=== PATIENT | female | born 1965 | race Caucasian/White ===

== ENCOUNTER 2016-08-16 15:32 | Outpatient (CLI) | payer OTHER | END 2016-08-16 15:33 | disposition home or self-care (01) | DX: Z13.9 Encounter for screening, unspecified (principal); E55.9 Vitamin D deficiency, unspecified; Z13.29 Encounter for screening for other suspected endocrine disorder; K12.2 Cellulitis and abscess of mouth ==

== ENCOUNTER 2016-08-20 12:27 | Outpatient (CLI) | payer OTHER ==
[2016-08-20] MEDS ORDERED: IOPAMIDOL-300 100 ML VIAL IVP ONE (13:11)
== END 2016-08-20 12:28 | disposition home or self-care (01) ==
DX: K04.5 Chronic apical periodontitis (principal)
CPT/HCPCS: 70487; Q9967

== ENCOUNTER 2016-08-26 13:20 | Outpatient (CLI) | payer OTHER | END 2016-08-26 13:21 | disposition home or self-care (01) | DX: Z13.820 Encounter for screening for osteoporosis (principal) ==

== ENCOUNTER 2017-08-05 08:55 | Outpatient (CLI) | payer OTHER ==
[2017-08-05 11:39] LABS: HGB - HEMOGLOBIN 13.6 g/dL (12.0-16.0); MEAN CORPUSCULAR HEMOGLOBIN 30.8 pg (27.0-31.0); MEAN CORPUSCULAR HGB CONC 34.1 g/dL (32.0-36.0); MEAN CORPUSCULAR VOLUME 90.1 fL (81.0-99.0); MEAN PLATELET VOLUME 7.9 fL (7.9-10.8); RED BLOOD COUNT 4.41 10^6/uL (4.20-5.40); RED CELL DISTRIBUTION WIDTH 12.6 % (12.0-15.0); WHITE BLOOD COUNT 7.4 x10^3/uL (4.8-10.8)
== END 2017-08-05 08:56 | disposition home or self-care (01) ==
LOC: LAB.F 08:55
PROVIDERS: ATTEND Nurse Practitioner Family
DX: M79.675 Pain in left toe(s) (principal)
CPT/HCPCS: 36415; 84550

== ENCOUNTER 2017-09-17 17:15 | Outpatient (CLI) | payer OTHER ==
[2017-09-17 18:49] LABS: BILIRUBIN,URINE NEGATIVE (NEGATIVE); GLUCOSE, URINE (UA) NEGATIVE (NEGATIVE); KETONES,URINE (UA) NEGATIVE (NEGATIVE); OCCULT BLOOD,URINE LARGE (NEGATIVE); UROBILINOGEN,URINE 0.2 (NORMAL) E.U./dL (NORMAL)
[2017-09-17 18:53] LABS: CLARITY,URINE CLEAR (CLEAR)
[2017-09-17 18:59] LABS: BACTERIA,URINE Few /HPF (None Seen); MUCUS,URINE Few Strands; RBC,URINE TNTC /HPF (0-5); SQUAMOUS EPITHELIAL CELL,UR FEW Squamous (<= Few)
== END 2017-09-17 17:16 ==
LOC: LAB.R 17:15
PROVIDERS: ATTEND Physician Assistant Medical
DX: R31.0 Gross hematuria (principal); N39.0 Urinary tract infection, site not specified
CPT/HCPCS: 81001; 87086

== ENCOUNTER 2017-09-25 15:18 | Outpatient (CLI) | payer OTHER ==
[2017-09-26 15:48] LABS: BILIRUBIN,URINE NEGATIVE (NEGATIVE); GLUCOSE, URINE (UA) NEGATIVE (NEGATIVE); KETONES,URINE (UA) NEGATIVE (NEGATIVE); LEUKOCYTE ESTERASE, URINE NEGATIVE (NEGATIVE); NITRITE,URINE NEGATIVE (NEGATIVE); OCCULT BLOOD,URINE TRACE-LYSE (NEGATIVE); PH,URINE 5.5 PH (5.0-7.5); PROTEIN,URINE NEGATIVE (NEGATIVE); UROBILINOGEN,URINE 0.2 (NORMAL) E.U./dL (NORMAL)
[2017-09-26 15:53] LABS: CLARITY,URINE CLEAR (CLEAR)
[2017-09-26 15:54] LABS: BACTERIA,URINE None Seen /HPF (None Seen); RBC,URINE 0-5 /HPF (0-5); SQUAMOUS EPITHELIAL CELL,UR NONE SEEN (<= Few)
== END 2017-09-25 15:19 | disposition home or self-care (01) ==
LOC: LAB.R 15:18
PROVIDERS: ATTEND Physician Assistant Medical
DX: R31.9 Hematuria, unspecified (principal)
CPT/HCPCS: 81001; 87086

== ENCOUNTER 2018-03-18 10:09 | Emergency (ER) | payer OTHER ==
--- NOTE | 2018-03-18 12:11 | ED Physician Documentation ---
History of Present Illness - Stated complaint Stated Complaint: FINGER LACERATION - Chief complaint Chief Complaint: Laceration - Additonal information Additional information: hx from pt reached into bag of clothes for [employer] and there was a food precisser blade and she suffered a near avulsion lac to the tip of her finger boss told her to seek medical went to walk in and was sent to ED Review of Systems Skin: reports: Laceration (s) PD PAST MEDICAL HISTORY - Past Medical History Psych: Depression - Past Surgical History Past Surgical History: Yes /[employer]: Hysterectomy, Oophrectomy - Present Medications Home Medications: Ambulatory Orders Medication Instructions Recorded Confirmed PARoxetine [Paxil] 40 mg PO DAILY 04/12/15 03/18/18 - Allergies Allergies/Adverse Reactions: Allergies Allergy/AdvReac Type Severity Reaction Status Date / Time No Known Drug Allergies Allergy Verified 03/18/18 10:33 - Social History Does the pt smoke?: Yes Smoking Status: Current every day smoker Does the pt drink ETOH?: Yes Does the pt have substance abuse?: No - Immunizations Immunizations are current?: Yes Immunizations: TDAP current <10years PD ED PE NORMAL - Vitals Vital signs reviewed: Yes - Extremities Extremities: Other (3rd digit L hand near complete < 1 cm X 1 cm avulsion with no active bleeding) Results - Vitals Vitals: Vital Signs - 24 hr 03/18/18 10:26 Temperature 36.4 C L Heart Rate 91 Respiratory 14 Rate Blood Pressure 132/62 H O2 Saturation 96 Oxygen O2 Source Room air Procedures - Laceration (location) finger Length in cm: 1 Wound type: Curved, Flap Skin layer closure: Dermabond Other: Patient tolerated well, Tetanus UTD Complexity: Simple PD MEDICAL DECISION MAKING - Sepsis Event Vital Signs: Vital Signs - 24 hr 03/18/18 10:26 Temperature 36.4 C L Heart Rate 91 Respiratory 14 Rate Blood Pressure 132/62 H O2 Saturation 96 Oxygen O2 Source Room air Departure - Departure Disposition: 01 Home, Self Care Clinical Impression: Finger laceration Qualifiers: Encounter type: initial encounter Finger: middle finger Damage to nail status: with damage Foreign body presence: without foreign body Laterality: left Qualified Code(s): S61.313A - Laceration without foreign body of left middle finger with damage to nail, initial encounter Condition: Good Instructions: ED Laceration Hand Follow-Up: Salena Mendoza PA-C [Primary Care Provider] - Comments: The skin glue will hild the flap down until the skin has a chance to heal. The torn nail will grow out Wear the splint as needed to protect the fingertip for the next few days May wash your hands Avoid lotion and ointments - those will dissolve the glue Return for any signs of infection such as redness swelling streaks drainage or fever
[2018-03-18 13:46] VITALS: BP 120/88
== END 2018-03-18 13:53 | disposition home or self-care (01) ==
LOC: ED 10:09
DX: S61.313A Laceration without foreign body of left middle finger with damage to nail, initial encounter (principal); W29.0XXA Contact with powered kitchen appliance, initial encounter; Y99.0 Civilian activity done for income or pay
CPT/HCPCS: 1040M; 12001; 99282; 99283

== ENCOUNTER 2019-02-04 08:00 | Outpatient (CLI) | payer OTHER | END 2019-02-04 23:59 | disposition home or self-care (01) | LOC: LAB.R 08:00 | PROVIDERS: ATTEND Family Medicine | DX: R31.9 Hematuria, unspecified (principal) | CPT/HCPCS: 87086 ==

== ENCOUNTER 2019-03-03 13:19 | Outpatient (CLI) | payer OTHER ==
[2019-03-03 17:35] LABS: BASOPHILS # (AUTO) 0.1 10^3/uL (0.0-0.1); BASOPHILS % (AUTO) 0.6 %; EOSINOPHILS # (AUTO) 0.2 10^3/uL (0.0-0.7); EOSINOPHILS % (AUTO) 2.1 %; HGB - HEMOGLOBIN 13.1 g/dL (12.0-16.0); LYMPHOCYTES % (AUTO) 31.5 %; MEAN CORPUSCULAR HEMOGLOBIN 30.2 pg (27.0-31.0); MEAN CORPUSCULAR HGB CONC 32.4 g/dL (32.0-36.0); MEAN CORPUSCULAR VOLUME 93.1 fL (81.0-99.0); MEAN PLATELET VOLUME 9.8 fL (7.9-10.8); MONOCYTES # (AUTO) 0.7 10^3/uL (0.0-1.0); MONOCYTES % (AUTO) 6.8 %; NEUTROPHILS # (AUTO) 5.7 10^3/uL (1.5-6.6); NEUTROPHILS % (AUTO) 58.9 %; PLT - PLATELET COUNT 264 10^3/uL (130-450); RED BLOOD COUNT 4.34 10^6/uL (4.20-5.40); RED CELL DISTRIBUTION WIDTH 11.9 % (12.0-15.0); WHITE BLOOD COUNT 9.6 x10^3/uL (4.8-10.8)
[2019-03-03 17:49] LABS: ALBUMIN 4.4 g/dL (3.2-5.5); ALBUMIN/GLOBULIN RATIO 1.3 (1.0-2.2); BILIRUBIN,TOTAL 0.5 mg/dL (0.2-1.0); CALCIUM 9.6 mg/dL (8.5-10.3); CREATININE 0.5 mg/dL (0.4-1.0); TOTAL PROTEIN 7.7 g/dL (6.7-8.2)
--- NOTE | 2019-03-05 07:01 | XRAY Report ---
Reason: FOOT PAIN, LEFT M79.672 Procedure Date: 03/03/2019 Accession Number: [id number] / [id number] Procedure: XRS - Foot 3 View LT CPT Code: FULL RESULT: EXAM: LEFT FOOT RADIOGRAPHY EXAM DATE: 03/03/2019 01:37 PM. CLINICAL HISTORY: FOOT PAIN, LEFT M79. 672. COMPARISON: None. TECHNIQUE: 3 views. FINDINGS: Bones: No evidence of acute fracture. Joints: Severe osteoarthritis of the first metatarsophalangeal joint. Soft Tissues: Metallic 2.2 cm foreign body, compatible with a needle, in the soft tissues between the second and third metatarsal shafts. IMPRESSION: Severe osteoarthritis of the first metatarsophalangeal joint. Metallic foreign body in the soft tissues between the second and third metatarsal shafts. RADIA
== END 2019-03-03 13:20 | disposition home or self-care (01) ==
LOC: DI.S 13:19
PROVIDERS: ATTEND Physician Assistant Medical
DX: M19.072 Primary osteoarthritis, left ankle and foot (principal); Z51.81 Encounter for therapeutic drug level monitoring; M79.5 Residual foreign body in soft tissue
CPT/HCPCS: 36415; 80053; 85025

== ENCOUNTER 2019-04-14 12:25 | Outpatient (CLI) | payer OTHER ==
[2019-04-14 13:09] LABS: CREATININE 0.6 mg/dL (0.4-1.0)
[2019-04-14] MEDS ORDERED: IOVERSOL 320 100 ML VIAL IVP ONE ×2 (13:40→13:43)
--- NOTE | 2019-04-15 15:03 | CT Report ---
Reason: HISTROY OF GROSS HEMATURIA Procedure Date: 04/14/2019 Accession Number: [id number] / [id number] Procedure: CT - IVP CPT Code: FULL RESULT: EXAM: CT ABDOMEN AND PELVIS WITHOUT AND WITH CONTRAST (CT IVP) EXAM DATE: 04/14/2019 01:53 PM. CLINICAL HISTORY: HISTROY OF GROSS HEMATURIA. COMPARISONS: 04/15/2019 1:20 PM. TECHNIQUE: Routine helical imaging was performed through the kidneys, ureters and bladder in the precontrast, postcontrast and delayed phase. IV Contrast: OPTI 320 100ML. Reconstructions: Coronal and sagittal. In accordance with CT protocol optimization, one or more of the following dose reduction techniques were utilized for this exam: automated exposure control, adjustment of mA and/or KV based on patient size, or use of iterative reconstructive technique. FINDINGS: Lung Bases: Unremarkable. Liver: Normal. No masses. Gallbladder/Bile Ducts: Contracted. Spleen: Normal. Pancreas: Normal. Adrenal Glands: Normal. Kidneys/Bladder: Right Kidney/Ureter: No renal or ureteral stones. No hydronephrosis or hydroureter. No masses. Left Kidney/Ureter: 4 mm nonobstructing lower pole calculus No hydronephrosis or hydroureter. No masses. Bladder: No stones. 8 x 10 x 10 mm lobulated filling defect left inferior lateral urinary bladder wall , . Peritoneal Cavity/Bowel: No free fluid, free air or adenopathy. No masses or acute inflammatory process. The appendix appears normal Pelvic Organs: Uterus not seen. Vasculature: No aneurysms or other significant abnormality. Bones: Mild degenerative change in the spine. Other: None. IMPRESSION: 1. 4 mm nonobstructing left lower pole renal calculus. 2. 8 x 10 x 10 mm filling defect left inferior lateral bladder, consider polyp, tumor, clot. Consider cystoscopy. 3. Otherwise negative CT scan of the abdomen and pelvis without and with contrast. RADIA
== END 2019-04-14 12:26 | disposition home or self-care (01) ==
LOC: DI 12:25
PROVIDERS: ATTEND Urology
DX: N20.0 Calculus of kidney (principal); N32.89 Other specified disorders of bladder; R31.0 Gross hematuria
CPT/HCPCS: 36415; 74178; 82565; 84520; Q9967

== ENCOUNTER 2019-05-17 09:33 | Outpatient (CLI) | payer OTHER ==
[2019-05-17 17:42] LABS: BILIRUBIN,URINE NEGATIVE (NEGATIVE); GLUCOSE, URINE (UA) NEGATIVE (NEGATIVE); KETONES,URINE (UA) NEGATIVE (NEGATIVE); LEUKOCYTE ESTERASE, URINE NEGATIVE (NEGATIVE); NITRITE,URINE NEGATIVE (NEGATIVE); OCCULT BLOOD,URINE SMALL (NEGATIVE); PROTEIN,URINE NEGATIVE (NEGATIVE); UROBILINOGEN,URINE 0.2 (NORMAL) E.U./dL (NORMAL)
[2019-05-17 17:56] LABS: BACTERIA,URINE None Seen /HPF (None Seen); CLARITY,URINE CLEAR (CLEAR); RBC,URINE 0-5 /HPF (0-5); SQUAMOUS EPITHELIAL CELL,UR RARE Squamous (<= Few)
== END 2019-05-17 09:34 | disposition home or self-care (01) ==
LOC: LAB.S 09:33
PROVIDERS: ATTEND Urology
DX: D49.4 Neoplasm of unspecified behavior of bladder (principal)
CPT/HCPCS: 81001; 87086

== ENCOUNTER 2019-05-18 08:59 | Outpatient (CLI) | payer OTHER ==
[2019-05-18 09:53] LABS: CALCIUM 9.4 mg/dL (8.5-10.3); CREATININE 0.6 mg/dL (0.4-1.0)
== END 2019-05-18 09:00 | disposition home or self-care (01) ==
LOC: LAB 08:59
PROVIDERS: ATTEND Urology
DX: Z01.812 Encounter for preprocedural laboratory examination (principal); D41.4 Neoplasm of uncertain behavior of bladder
CPT/HCPCS: 36415; 80048

== ENCOUNTER 2019-05-24 07:00 | Day surgery (SDC) | payer OTHER ==
[2019-05-24] MEDS ORDERED: CIPROFLOXACIN 400 MG/200 ML 200 ML IV ONE (07:07)
[2019-05-24 07:28] VITALS: BP 127/86
[2019-05-24] MEDS ORDERED: LACTATED RINGERS 1,000 ML IV ONE (07:34)
--- NOTE | 2019-05-24 07:45 | ANESTHESIA ---
Pre-Anesthesia VS, & Labs - Diagnosis Bladder tumor - Procedure TURBT Vital Signs: Temp Pulse Resp BP Pulse Ox 36.2 C L 72 18 127/86 H 98 05/24/19 07:26 05/24/19 07:26 05/24/19 07:26 05/24/19 07:26 05/24/19 07:26 Height 5 ft 5 in Weight (kg) 73.7 kg Body Mass Index 28.3 - NPO >8 hours - Is Patient ?: No Home Medications and Allergies Home Medications: Ambulatory Orders Ibuprofen 200 mg PO Q6HR PRN 05/18/19 PARoxetine [Paxil] 20 mg PO DAILY 04/12/15 Ibuprofen 200 mg PO Q6HR PRN 05/18/19 Allergies/Adverse Reactions: Allergies Allergy/AdvReac Type Severity Reaction Status Date / Time No Known Drug Allergies Allergy Verified 03/18/18 10:33 Anes History & Medical History - Anesthetic History Anesthesia Complications: reports: No previous complications - Medical History Cardiovascular: reports: None Pulmonary: reports: None Gastrointestinal: reports: None Urinary: reports: Chronic bladder infection, Kidney stones, Other Neuro: reports: None Musculoskeletal: reports: Gout Endocrine/Autoimmune: reports: None Blood Disorders: reports: None Skin: reports: None Smoking Status: Current every day smoker (1/2 pack per day) Psychosocial: reports: Depression, Alcohol (6 pack per day) - Surgical History Gynecologic: Hysterectomy, Oophrectomy Orthopedic: Arthroscopic surgery, Carpal Tunnel surgery Results - EKG Results EKG Comparison: Reviewed EKG Exam General: Alert, Oriented x3, Cooperative, No acute distress Dental: WNL Mouth Openin Fingerbreadth Neck Mobility: Normal Mallampati classification: II Thyromental Distance: greater than 6 cm Respiratory: Lungs clear, Normal breath sounds, No respiratory distress, No accessory muscle use Cardiovascular: Regular rate, Normal S1, Normal S2, No murmurs Mental/Cognitive Status: Alert/Oriented X3, Normal for patient Plan Anesthesia Type: General Consent for Procedure(s) Verified and Reviewed: Yes Code Status: Attempt Resuscitation ASA classification: 2-Mild systemic disease Is this case an emergency?: No
== END 2019-05-24 07:01 | disposition home or self-care (01) ==
LOC: SDS 07:00
PROVIDERS: ATTEND Urology
DX: D41.4 Neoplasm of uncertain behavior of bladder (principal); Z53.8 Procedure and treatment not carried out for other reasons

== ENCOUNTER 2020-07-17 08:00 | Outpatient (CLI) | payer OTHER | END 2020-07-17 23:59 | disposition home or self-care (01) | LOC: LAB.S 08:00 | PROVIDERS: ATTEND Physician Assistant Medical | DX: R05 Cough (principal); Z20.822 Contact with and (suspected) exposure to COVID-19 | CPT/HCPCS: 87275; 87276 ==

== ENCOUNTER 2020-07-17 09:56 | Outpatient (CLI) | payer OTHER ==
--- NOTE | 2020-07-19 05:18 | XRAY Report ---
PROCEDURE: Chest 2 View X-Ray INDICATIONS: FATIGUE AND MALAISE TECHNIQUE: 2 views of the chest. COMPARISON: Chest radiograph 04/27/2015 FINDINGS: Surgical changes and devices: None. Lungs and pleura: No pleural effusions or pneumothorax. Lungs are clear. Mediastinum: Mediastinal contours are normal. Heart size is normal. Bones and chest wall: No suspicious bony abnormalities. Soft tissues appear unremarkable. IMPRESSION: No acute cardiopulmonary abnormality. Reviewed by: Carrillo Muir MD on 07/17/2020 10:13 AM [facility] Approved by: Carrillo Muir MD on 07/17/2020 10:13 AM [facility] Station ID: [id number]
== END 2020-07-17 23:59 | disposition home or self-care (01) ==
LOC: DI.S 09:56
PROVIDERS: ATTEND Physician Assistant Medical
DX: R05 Cough (principal); R53.83 Other fatigue

== ENCOUNTER 2020-07-27 08:00 | Outpatient (CLI) | payer OTHER | END 2020-07-27 23:59 | disposition home or self-care (01) | LOC: COV 08:00 | PROVIDERS: ATTEND Physician Assistant Medical | DX: R05 Cough (principal); Z20.822 Contact with and (suspected) exposure to COVID-19 ==

== ENCOUNTER 2021-09-21 07:57 | Outpatient (CLI) | payer OTHER ==
[2021-09-21 15:17] LABS: BASOPHILS # (AUTO) 0.1 10^3/uL (0.0-0.1); BASOPHILS % (AUTO) 0.8 %; EOSINOPHILS # (AUTO) 0.2 10^3/uL (0.0-0.7); EOSINOPHILS % (AUTO) 2.7 %; HCT - HEMATOCRIT 41.5 % (37.0-47.0); HGB - HEMOGLOBIN 13.8 g/dL (12.0-16.0); LYMPHOCYTES # (AUTO) 2.5 10^3/uL (1.5-3.5); LYMPHOCYTES % (AUTO) 33.4 %; MEAN CORPUSCULAR HEMOGLOBIN 31.4 pg (27.0-31.0); MEAN CORPUSCULAR HGB CONC 33.3 g/dL (32.0-36.0); MEAN CORPUSCULAR VOLUME 94.3 fL (81.0-99.0); MEAN PLATELET VOLUME 9.7 fL (7.9-10.8); MONOCYTES # (AUTO) 0.5 10^3/uL (0.0-1.0); MONOCYTES % (AUTO) 6.9 %; NEUTROPHILS # (AUTO) 4.2 10^3/uL (1.5-6.6); NEUTROPHILS % (AUTO) 55.9 %; PLT - PLATELET COUNT 290 10^3/uL (130-450); RED CELL DISTRIBUTION WIDTH 12.1 % (12.0-15.0); WHITE BLOOD COUNT 7.4 x10^3/uL (4.8-10.8)
[2021-09-21 15:53] LABS: ALBUMIN 4.2 g/dL (3.2-5.5); ALBUMIN/GLOBULIN RATIO 1.5 (1.0-2.2); ALKALINE PHOSPHATASE 91 IU/L (42-121); ALT ALANINE AMINOTRANSFERASE 24 IU/L (10-60); AST ASPARTATE AMINOTRANSFERASE 21 IU/L (10-42); BILIRUBIN,TOTAL 0.5 mg/dL (0.2-1.0); BUN - BLOOD UREA NITROGEN 13 mg/dL (6-20); CALCIUM 9.2 mg/dL (8.5-10.3); CARBON DIOXIDE - CO2 26 mmol/L (21-32); CHLORIDE 100 mmol/L (101-111); CHOL/HDL RATIO 4.2 (<4.4); CHOLESTEROL 270 mg/dL; CREATININE 0.5 mg/dL (0.4-1.0); GFR - MDRD 127 (>89); GLUCOSE 104 mg/dL (70-100); HDL CHOLESTEROL 65 mg/dL; LDL CHOLESTEROL,CALCULATED 185 mg/dL; LDL/HDL RATIO 2.8 (<4.4); POTASSIUM 4.5 mmol/L (3.5-5.0); SODIUM 134 mmol/L (135-145); TRIGLYCERIDES 98 mg/dL; VLDL CHOLESTEROL 20 mg/dL
[2021-09-21 15:56] LABS: THYROID STIMULATING HORMONE 2.06 uIU/mL (0.34-5.60)
== END 2021-09-21 07:58 | disposition home or self-care (01) ==
LOC: LAB.S 07:57
PROVIDERS: ATTEND Physician Assistant Medical
DX: Z51.81 Encounter for therapeutic drug level monitoring (principal); F32.A Depression, unspecified; Z79.899 Other long term (current) drug therapy
CPT/HCPCS: 36415; 80053; 80061; 83721; 84443; 85025

== ENCOUNTER 2022-06-28 13:37 | Outpatient (CLI) | payer OTHER ==
[2022-06-28 19:30] LABS: BASOPHILS # (AUTO) 0.1 10^3/uL (0.0-0.1); BASOPHILS % (AUTO) 0.8 %; EOSINOPHILS # (AUTO) 0.1 10^3/uL (0.0-0.7); EOSINOPHILS % (AUTO) 0.7 %; HCT - HEMATOCRIT 42.9 % (37.0-47.0); HGB - HEMOGLOBIN 13.5 g/dL (12.0-16.0); LYMPHOCYTES # (AUTO) 3.5 10^3/uL (1.5-3.5); LYMPHOCYTES % (AUTO) 33.5 %; MEAN CORPUSCULAR HEMOGLOBIN 30.1 pg (27.0-31.0); MEAN CORPUSCULAR HGB CONC 31.5 g/dL (32.0-36.0); MEAN CORPUSCULAR VOLUME 95.8 fL (81.0-99.0); MEAN PLATELET VOLUME 9.7 fL (7.9-10.8); MONOCYTES # (AUTO) 0.6 10^3/uL (0.0-1.0); MONOCYTES % (AUTO) 5.3 %; NEUTROPHILS # (AUTO) 6.3 10^3/uL (1.5-6.6); NEUTROPHILS % (AUTO) 59.3 %; PLT - PLATELET COUNT 306 10^3/uL (130-450); RED BLOOD COUNT 4.48 10^6/uL (4.20-5.40); RED CELL DISTRIBUTION WIDTH 12.2 % (12.0-15.0); WHITE BLOOD COUNT 10.5 x10^3/uL (4.8-10.8)
[2022-06-28 19:41] LABS: ALBUMIN 4.6 g/dL (3.2-5.5); ALBUMIN/GLOBULIN RATIO 1.4 (1.0-2.2); BILIRUBIN,TOTAL 0.6 mg/dL (0.2-1.0); CALCIUM 9.9 mg/dL (8.5-10.3); CREATININE 0.7 mg/dL (0.4-1.0)
[2022-06-28 19:57] LABS: THYROID STIMULATING HORMONE 1.79 uIU/mL (0.34-5.60)
== END 2022-06-28 13:38 | disposition home or self-care (01) ==
LOC: LAB.S 13:37
PROVIDERS: ATTEND Physician Assistant
DX: R53.83 Other fatigue (principal)
CPT/HCPCS: 36415; 80053; 82306; 82607; 84443; 85025